=== PATIENT | male | born 1940 | race Caucasian/White ===

== ENCOUNTER 2016-09-22 20:39 | Emergency (ER) | payer OTHER ==
[2016-09-22 20:56] VITALS: BP 150/74; PULSE 58; RESP 16; TEMP 97.9; O2SAT 94
--- NOTE | 2016-09-22 20:58 | UCPHY ---
H & P Time Seen by Provider: 09/22/16 20:47 Patient Type: New HPI/ROS: This patient was taking down [employer] decorations at home shortly prior to arrival when he slipped on ice and landed on his right forearm with immediate swelling that is significant to the dorsum of the forearm. He reports minimal discomfort associated with this and he denies any other injuries. He came in to rule out fracture given the significance of the swelling. He was in a standing position when he fell. ROS: HEENT: No head injury musculoskeletal: No neck or back pain. Pulmonary : No chest pain or shortness of breath. Cardiovascular: No symptoms neuro: No numbness or tingling 7 point ROS is otherwise negative Physical Exam: Physical Exam Vital signs are normal. General: No acute distress HEENT: Atraumatic. Eyes: Pupils equal and react to light. Extraocular motions are intact. Lungs: No respiratory distress. Cardiac: Brisk capillary refill is intact throughout. Pulses are 2+ and symmetric in the affected extremity. Skin: No rash or pallor. Extremities: Atraumatic normal except for right forearm Right forearm: Patient has hematoma approximately 15 x 10 cm to the dorsum of the right forearm with mild tenderness. Despite this retains full range of motion at the wrist and elbow without change in discomfort. There is no lacerations or abrasions. Neuro: Alert and oriented x3 with no sensorimotor deficits. Initial differential diagnosis: Hematoma, fracture Constitutional: Initial Vital Signs Temperature (C) 36.6 C 09/22/16 20:41 Heart Rate 58 L 09/22/16 20:41 Respiratory Rate 16 09/22/16 20:41 Blood Pressure 150/74 H 09/22/16 20:41 O2 Sat (%) 94 09/22/16 20:41 O2 Delivery Mode Room Air Allergies/Adverse Reactions: No Known Allergies Allergy (Verified 09/22/16 20:56) Home Medications: Medication Instructions Recorded Alfuzosin HCl [Uroxatral 10 MG] 07/02/12 Aspirin [Aspirin 81mg (*)] 81 mg PO SUTUTHSA@2100 07/02/12 Cholecalciferol Vit D3 [Vitamin D3 1,000 units PO DAILY 07/02/12 (*)] Famotidine [Pepcid 20 MG (*)] 20 mg PO BID 07/02/12 Herbals/Supplements -Info Only 1 each PO AD 07/02/12 Latanoprost [Xalatan 0.005% (RX)] 1 drops EACHEYE HS 07/02/12 Lisinopril/Hydrochlorothiazide 1 tab PO DAILY 07/02/12 [Lisinopril-Hctz 20-25 mg Tab] Multivitamins [Multivitamin (*)] 1 tab PO DAILY 07/02/12 Niacin ER [Niaspan 1000 mg (*)] 2,000 mg PO HS 07/02/12 Simvastatin [Zocor 40 mg] 40 mg PO HS 07/02/12 Verapamil ER [Calan SR/ER 240MG 240 mg PO BID 07/02/12 (*)] MDM/Departure - MDM Diagnostics: Forearm x-ray: I initially read this as oblique nondisplaced mid radial fracture however I spoke with Dalton Shen, radiologist considering possibility of a nutrient vessel and he confirms that this is vascular channel rather than a fracture. ED Course/Re-evaluation: Ice is applied. The patient declines analgesics. Primitivo wrap to hematoma. I counseled patient regarding hematoma - Depart Disposition: Home, Routine, Self-Care Clinical Impression: Traumatic hematoma of forearm Qualifiers: Encounter type: initial encounter Laterality: right Qualifier Code: (S50.11XA) Contusion of right forearm, initial encounter Condition: Good Instructions: Hematoma (ED) Additional Instructions: Diagnosis: Traumatic hematoma of right forearm Plan: Ice 20 minutes at a time 3 times a day or more total swelling is resolved. Elevate the forearm when possible. Primitivo wrap when your up and about until swelling is resolved. Tylenol for discomfort as needed. Referrals: Deborah Diallo MD [Primary Care Provider] - As per Instructions - PQRS PQRS Measurement: 134: Depression screening and followup, PRIME MD-PHQ2 (12 years and older) Over the last 2 weeks, how often have you been bothered by any of the following problems? 1. Feeling down, depressed, or hopeless? 2. Little interest or pleasure in doing things? Patient answered no to both 1 and 2 130: Documentation of medications. Reviewed all patient medications, doses, route and frequency. 226: Do you smoke? No 47: 65 and older: Advanced care planning. Patient designates surrogate decision maker as spouse. 51: 18 years old and older with diagnosis of COPD, spirometry performance. [Patient has no history of COPD] 52: 18 years old and older with COPD and symptoms of COPD or FEV1<60% predicted prescribed a B Agonist. NA
--- NOTE | 2016-09-22 21:21 | DX ---
Right radius 2 views Findings: Pain and swelling after falling on ice. Findings: Soft tissue swelling is found at the proximal one 3rd of the forearm. Nutrient foramen is p resent in the radius. Spurs are found at the radius and ulna in near the elbow. No fracture. Impression: Hematoma proximal forearm; no fracture. I discussed results with Dr. Dmitri Dennis at 2115 hours.
== END 2016-09-22 21:31 | disposition home or self-care (01) ==
LOC: CED 20:39
DX: S50.11XA Contusion of right forearm, initial encounter (principal); W00.0XXA Fall on same level due to ice and snow, initial encounter
CPT/HCPCS: 73090; G0463